=== PATIENT | female | born 1970 | race Caucasian/White ===

== ENCOUNTER 2018-05-31 10:24 | Outpatient (CLI) | payer OTHER ==
[2018-05-31 11:14] LABS: eGFR (Non-African) > 60
== END 2018-05-31 10:26 ==
LOC: LAB 10:24
PROVIDERS: ATTEND Family Medicine
DX: Z00.00 Encounter for general adult medical examination without abnormal findings (principal); R53.83 Other fatigue
CPT/HCPCS: 36415; 80053; 80061

== ENCOUNTER 2019-03-17 16:46 | Outpatient (CLI) | payer BC, OTHER ==
[2019-03-17 17:01] LABS: BASOPHILS % 0.5 % (0.0-1.5); NEUTROPHILS # 3.6 # k/uL (1.4-7.7)
[2019-03-17 18:53] LABS: eGFR (Non-African) > 60
== END 2019-03-17 16:51 ==
LOC: LAB 16:46
PROVIDERS: ATTEND Family Medicine
DX: Z13.0 Encounter for screening for diseases of the blood and blood-forming organs and certain disorders involving the immune mechanism (principal); Z13.1 Encounter for screening for diabetes mellitus
CPT/HCPCS: 80053; 84443; 85025

== ENCOUNTER 2019-03-18 11:48 | Outpatient (CLI) | payer BC, OTHER | END 2019-03-18 11:53 | LOC: LAB 11:48 | PROVIDERS: ATTEND Family Medicine | DX: D64.9 Anemia, unspecified (principal) | CPT/HCPCS: 36415; 82728; 83540; 83550 ==